=== PATIENT | female | born 1990 | race Caucasian/White ===

== ENCOUNTER 2020-06-09 09:56 | Inpatient (IN) ==
[2020-06-09] MEDS ORDERED: Naloxone 0.4 MG/ML INJ IVP PRN (10:23)
[2020-06-09] MEDS ORDERED: Famotidine 20 MG/2 ML VIAL IVP PRN (10:23)
[2020-06-09] MEDS ORDERED: Metoclopramide 10 MG/2 ML VIAL IVP PRN (10:23)
[2020-06-09] MEDS ORDERED: Ondansetron 4 MG/2 ML VIAL IVP PRN (10:23)
[2020-06-09] MEDS ORDERED: EPHEDrine 50 MG/ML VIAL IVP PRN (11:37)
[2020-06-09 12:00] LABS: Basophils % 0.3 %; Eosinophils # 0.1 K/mcL (0.0-0.6); Eosinophils % 0.7 %; Hematocrit 31.7 % (35.3-44.9); Hemoglobin 10.4 g/dL (11.5-15.4); Immature Granulocytes % 0.8 % (0-4); Lymphocytes # 1.8 K/mcL (0.6-4.6); Lymphocytes % 19.8 %; Mean Corpuscular HGB Conc 32.8 g/dL (31.6-35.5); Mean Corpuscular Volume 94.3 fL (83.0-100.0); Mean Platelet Volume 11.1 fL (9.4-12.4); Monocytes # 0.8 K/mcL (0.0-1.3); Monocytes % 8.2 %; Neutrophils # 6.4 K/mcL (1.6-8.9); Platelet Count 257 K/mcL (140-400); Red Blood Count 3.36 M/mcL (3.82-4.97); Red Cell Distribution Width 14.2 % (11.5-14.5); Segmented Neutrophils % 70.2 %; White Blood Count 9.1 K/mcL (4.3-11.1)
[2020-06-09] MEDS ORDERED: *HR* Midazolam HCl 2 MG/2 ML VIAL ONE (12:24)
[2020-06-09 12:39] LABS: Influenza A PCR Negative (Negative); Influenza B PCR Negative (Negative); Resp. Syncytial Virus PCR Negative (Negative); SARS-CoV-2 by PCR (In House) Negative (Negative)
[2020-06-09 12:40] LABS: Amphetamine Screen,Urine Negative ng/mL (Cutoff=1000); Barbiturate Screen,Urine Negative ng/mL (Cutoff=200); Benzodiazepines Screen,Urine Negative ng/mL (Cutoff=200); Cannabinoid Screen,Urine Negative ng/mL (Cutoff = 50); Cocaine Screen,Urine Negative ng/mL (Cutoff= 300); Opiate Screen,Urine Negative ng/mL (Cutoff=300); Phencyclidine Screen,Urine Negative ng/mL (Cutoff=25)
[2020-06-09] MEDS ORDERED: miSOPROStoL 25 MCG TABLET PO PRN (12:47)
[2020-06-09] MEDS ORDERED: Oxytocin 20 units/ LR 1000 mL 20 UNIT/1,000 ML BAG IVC SCH (17:30)
[2020-06-09] MEDS: Ringers Solution, Lactated 1,000 ML IVC SCH (18:19)
[2020-06-09] MEDS ORDERED: *HR* Nalbuphine 10 MG/ML AMPUL IV PRN (19:33)
[2020-06-09] MEDS: Epidural Premix (fent/bupiv) 110 ML EP SCH (21:00)
[2020-06-10] MEDS: Epidural Premix (fent/bupiv) 110 ML EP SCH (02:15)
[2020-06-10] MEDS: Ringers Solution, Lactated 1,000 ML IVC SCH (02:15)
[2020-06-10] MEDS ORDERED: Oxytocin 20 units/ LR 1000 mL 20 UNIT/1,000 ML BAG IVC ONE (09:06)
[2020-06-10] MEDS ORDERED: Prenatal Vit/FA 1 EACH TABLET PO SCH (09:06)
[2020-06-10] MEDS ORDERED: Loratadine 10 MG TABLET PO SCH (09:06)
[2020-06-10] MEDS ORDERED: Oxytocin 20 units/ LR 1000 mL 20 UNIT/1,000 ML BAG IVC SCH (09:06)
[2020-06-10] MEDS ORDERED: Rho Immune Globulin 1,500 UNIT SYRINGE IM PRN (09:06)
[2020-06-10] MEDS ORDERED: Measles/Mumps/Rubella Vacc 0.5 ML VIAL SQ PRN (09:06)
[2020-06-10] MEDS ORDERED: Benzocaine/Menthol 56 GM AEROSOL SPRAY TP PRN (09:06)
[2020-06-10] MEDS: Acetaminophen 325 MG TABLET PO PRN ×2 (09:22→20:40)
[2020-06-10] MEDS ORDERED: Methylergonovine 0.2 MG/ML AMPUL IM ONE (10:07)
[2020-06-10] MEDS: Ibuprofen 600 MG TABLET PO PRN (16:04)
[2020-06-11] MEDS: Ibuprofen 600 MG TABLET PO PRN ×2 (03:55→08:22)
[2020-06-11 03:59] LABS: Basophils % 0.3 %; Eosinophils # 0.1 K/mcL (0.0-0.6); Eosinophils % 0.7 %; Hematocrit 25.6 % (35.3-44.9); Immature Granulocytes % 0.5 % (0-4); Lymphocytes # 3.4 K/mcL (0.6-4.6); Mean Corpuscular HGB Conc 32.4 g/dL (31.6-35.5); Mean Corpuscular Hemoglobin 31.3 pg (28.0-33.3); Mean Corpuscular Volume 96.6 fL (83.0-100.0); Mean Platelet Volume 10.5 fL (9.4-12.4); Monocytes # 0.9 K/mcL (0.0-1.3); Neutrophils # 7.2 K/mcL (1.6-8.9); Platelet Count 203 K/mcL (140-400); Red Blood Count 2.65 M/mcL (3.82-4.97); Red Cell Distribution Width 14.7 % (11.5-14.5); Segmented Neutrophils % 61.5 %; White Blood Count 11.7 K/mcL (4.3-11.1)
[2020-06-11 04:06] LABS: Hemoglobin 8.3 g/dL (11.5-15.4)
[2020-06-11 04:24] LABS: Anisocytosis 1+ (Not Present); Platelet Estimate Normal (Normal); Polychromasia 1+ (Not Present); Reactive Lymphocytes Present (Not Present); Toxic Granulation Present (Not Present)
[2020-06-11 07:58] VITALS: BP 102/61
== END 2020-06-11 18:59 | disposition home or self-care (01) | DRG 560 ==
LOC: 1NENULAB 09:56 → 1NENUOBS 06-10 10:47
PROVIDERS: ADMIT Obstetrics & Gynecology; ATTEND Obstetrics & Gynecology